=== PATIENT | female | born 1970 | race Caucasian/White ===

== ENCOUNTER 2017-08-21 20:56 | Emergency (ER) | payer MEDICAID, OTHER ==
[~2017-08-21] VITALS: Ht 157.5 cm; Wt 68.0 kg
[2017-08-21 20:59] VITALS: BP 117/71
--- NOTE | 2017-08-21 21:01 | NUR ---
TO BED # 10 AMBULATORY , REPORT GIVEN TO GILLIAN ENCISO.
[2017-08-21 21:02] VITALS: BP 117/71
--- NOTE | 2017-08-21 21:05 | NUR ---
Patient ambulated to bed 2 with family. RN evaluating patient at bedside.
--- NOTE | 2017-08-21 21:08 | NUR ---
47 YO F TO ER FOR R KNEE PAIN X 8 MO WITH AN INCREASE IN PAIN X1 DAY. PT STATES PAIN STARTED TO INCEASE WITH WALKING. MILD SWELLING, NO DEFORNITY, DIFFICULT TO BARE WEIGHT. PAIN 7/10 PAIN, SHARP. NO MEDS FOR PAIN TODAY. PT DENIES ANY OTHER MEDICAL CONCERNS. WILL CONTINUE TO MONITOR
--- NOTE | 2017-08-21 21:15 | NUR ---
Patient being evaluated by physician at bedside.
--- NOTE | 2017-08-21 21:18 | NUR ---
XRAY AT BEDSIDE
[2017-08-21] MEDS ORDERED: HYDROcodone/APAP 5/325 MG 1 TAB TAB PO ONE (21:20)
[2017-08-21] MEDS ORDERED: KETOROLAC 30 MG/ML VIAL IM ONE (21:20)
--- NOTE | 2017-08-21 22:29 | NUR ---
Patient discharged with v/s stable. Written and verbal after care instructions given and explained. Patient alert, oriented and verbalized understanding of instructions. Ambulatory with steady gait. All questions addressed prior to discharge. ID band removed. Patient advised to follow up with PMD. Rx of TYLENOL WITH CODEINE, NAPROSYN given. Patient educated on indication of medication including possible reaction and side effects. Opportunity to ask questions provided and answered.
== END 2017-08-21 22:29 | disposition home or self-care (01) ==
LOC: MED 20:56
DX: S83.91XA Sprain of unspecified site of right knee, initial encounter (principal); X58.XXXA Exposure to other specified factors, initial encounter; Y93.89 Activity, other specified; Y92.89 Other specified places as the place of occurrence of the external cause; Y99.8 Other external cause status
CPT/HCPCS: 29505; 73562; 96372; 99284; J1885; Q0092

== ENCOUNTER 2020-08-11 15:29 | Emergency (ER) | payer SELFPAY ==
[~2020-08-11] VITALS: Ht 160 cm; Wt 81.6 kg
[2020-08-11 15:34] VITALS: BP 155/84
[2020-08-11] MEDS ORDERED: ACETAMINOPHEN EXTRA STRENGTH 500 MG TAB PO ONE (15:45)
[2020-08-11 17:06] VITALS: BP 155/84
== END 2020-08-11 17:07 | disposition home or self-care (01) ==
LOC: MED 15:29
DX: S09.90XA Unspecified injury of head, initial encounter (principal); M25.561 Pain in right knee; R42 Dizziness and giddiness; W01.0XXA Fall on same level from slipping, tripping and stumbling without subsequent striking against object, initial encounter; Y93.89 Activity, other specified; Y92.89 Other specified places as the place of occurrence of the external cause; Y99.8 Other external cause status
CPT/HCPCS: 70450; 72125; 73562; 99285

== ENCOUNTER 2021-04-20 22:22 | Emergency (ER) | payer SELFPAY ==
[~2021-04-20] VITALS: Ht 157.5 cm; Wt 80.7 kg
[2021-04-20 22:40] VITALS: BP 135/77
--- NOTE | 2021-04-20 22:47 | NUR ---
PATIENT TO [facility] W/C ASSISTED
[2021-04-20] MEDS ORDERED: diphenhydrAMINE 50 MG CAP PO ONE (23:05)
[2021-04-20] MEDS ORDERED: METOCLOPRAMIDE 10 MG TAB PO ONE (23:05)
--- NOTE | 2021-04-20 23:10 | NUR ---
PT ASSIGNED TO ME AT THIS TIME.
--- NOTE | 2021-04-20 23:25 | NUR ---
51 YO/F BIB DAUGHTER W C/O HEADACHE THROBBING 10 [id number] INTERMITTENT NON RAD, + AN EPISODE OF DIZZINESS, AND AN EPISODE OF NAUSEA. PT DENIES ANY FEVERS/CHILLS, V/D, LOC, OR URINE SYMPTOMS. NO DEFICITS TO UPPER OF LOWER EXTREMITIES. PT SITTING IN CHAIR B. VSS. BREATHING EVEN AND UNLABORED. NAD NOTED, WILL CONTINUE TO MONITOR. PMH:DENIES NKA
[2021-04-20 23:41] LABS: APPEARANCE,URINE CLEAR (CLEAR); BILIRUBIN,URINE NEGATIVE (NEGATIVE); BLOOD, URINE TRACE-I (NEGATIVE); COLOR,URINE YELLOW (YELLOW); LEUKOCYTE ESTERASE ,URINE NEGATIVE (NEGATIVE); NITRITE, URINE NEGATIVE (NEGATIVE); UGLUCOSE NEGATIVE (NEGATIVE)
[2021-04-20 23:48] LABS: RBC,URINE 0-5 /HPF (0-5); WBC,URINE 0-5 /HPF (0-5)
--- NOTE | 2021-04-21 00:01 | NUR ---
PT TO CT VIA WHEELCHAIR.
--- NOTE | 2021-04-21 00:01 | NUR ---
PT TAKEN TO CT
--- NOTE | 2021-04-21 00:08 | NUR ---
PT RETURN FROM CT
--- NOTE | 2021-04-21 00:52 | NUR ---
PT REPORTS HEADACHE IMPROVEMENT /10.
[2021-04-21] MEDS ORDERED: KETOROLAC 30 MG/ML VIAL IM ONE (02:20)
[2021-04-21 02:30] VITALS: BP 137/79
--- NOTE | 2021-04-21 02:30 | NUR ---
Patient discharged with v/s stable. Written and verbal after care instructions given and explained. Patient verbalized understanding. Ambulatory with steady gait. All questions addressed prior to discharge. Advised to follow up with PMD.
== END 2021-04-21 02:30 | disposition home or self-care (01) ==
LOC: MED 22:22
DX: R51.9 Headache, unspecified (principal); R42 Dizziness and giddiness
CPT/HCPCS: 70450; 81001; 81025; 87086; 96372; 99284; J1885; J8597; Q0163; 99283

== ENCOUNTER 2022-02-25 06:11 | Emergency (ER) | payer SELFPAY ==
[~2022-02-25] VITALS: Ht 157.5 cm; Wt 76.7 kg
[2022-02-25 06:16] VITALS: BP 123/80
--- NOTE | 2022-02-25 06:22 | NUR ---
HEATHER GATES ASSESSING PATIENT IN TRIAGE
--- NOTE | 2022-02-25 06:27 | NUR ---
AMBULATED TO BED 5 WITH STEADY GAIT.
--- NOTE | 2022-02-25 07:22 | NUR ---
Report recieved from FERNIE Gotti for transfer of care.
[2022-02-25] MEDS ORDERED: ROB PO ×2 (07:33→08:52)
[2022-02-25] MEDS ORDERED: PRED20TA5 PO ×2 (07:33→08:52)
[2022-02-25] MEDS ORDERED: ALBU0.0912 IH ×2 (07:33→08:52)
[2022-02-25 07:47] VITALS: BP 125/83
--- NOTE | 2022-02-25 07:47 | NUR ---
Patient discharged with v/s stable. Written and verbal after care instructions given. Patient alert, oriented and verbalized understanding of instructions. Ambulatory with steady gait. All questions addressed prior to discharge. ID band removed. Patient advised to follow up with PMD. Rx of Proventil, Deltasone and Robitussin given. Opportunity to ask questions provided and answered. WORK NOTE HANDED TO PATIENT.
--- NOTE | 2022-02-25 07:48 | NUR ---
The patient's care was reviewed and supervised by Sharri Thakkar, RN, RN.
== END 2022-02-25 07:47 | disposition home or self-care (01) ==
LOC: MED 06:11
DX: J40 Bronchitis, not specified as acute or chronic (principal)
CPT/HCPCS: 71045; 99283; Q0092